=== PATIENT | female | born 1965 | race Caucasian/White ===

== ENCOUNTER 2017-11-09 14:33 | Emergency (ER) | payer OTHER ==
[~2017-11-09] VITALS: Ht 154.9 cm; Wt 61.7 kg
[2017-11-09] MEDS ORDERED: PROAIR HFA8.5 GM INH (15:44)
[2017-11-09] MEDS ORDERED: TESSALON PERLE100 MG PO (15:44)
[2017-11-09] MEDS ORDERED: GUAIFENESIN-CODE5 ML PO (15:44)
[2017-11-09] MEDS ORDERED: OSELB75 PO (15:54)
[2017-11-09 15:59] VITALS: BP 121/70
[2018-07-10] MEDS ORDERED: ESTRADIOL 1 MG T1 M1 PO (13:00)
[2018-07-10] MEDS ORDERED: PROGESTERONE100 MG PO (13:01)
== END 2017-11-09 16:01 | disposition home or self-care (01) ==
LOC: ER 14:33
DX: J06.9 Acute upper respiratory infection, unspecified (principal); R50.9 Fever, unspecified

== ENCOUNTER → 2018-07-11 | Outpatient (CLI) | payer OTHER ==
[~2018-07-11] VITALS: Ht 154.9 cm; Wt 63.5 kg
[~2018-07-11] MED LIST: ESTRADIOL 1 MG T1 M1 PO; GUAIFENESIN-CODE5 ML PO; OSELB75 PO; PROAIR HFA8.5 GM INH; PROGESTERONE100 MG PO; TESSALON PERLE100 MG PO
--- NOTE | ~2018-07-11 | PATH ---
[facility] [address] [address] PATHOLOGY RPT PROCEDURE Name: FLORENCIO JENKINS Room #: REG LORRAINE Winters.#: [id number] Admission: 07/11/18 Date of : 69 Discharge: Report #: [id number] Path Case #: [id number] [facility] Accession Number: [id number] . 01 Material submitted: . ASCENDING COLON POLYP BX X3 . 01 Clinical history: . Pre-op diagnosis: Screening Post-op diagnosis: Colon polyps, internal hemorrhoids . 02 Diagnosis: Colonic mucosa, "ascending colon polyp biopsy x3": - Fragments of tubular adenoma. - There is no evidence of high grade dysplasia or malignancy. . (SHA:mml; 07/13/18) QL/07/13/2018 . 02 Electronically signed: . Hermilo Jones MD, Pathologist NPI- [id number] . 01 Gross description: . The specimen is received in formalin, labeled "Florencio Jenkins, ascending colon polyp biopsy x3". Received are five segments of pale mack soft tissue ranging in size from 0.2 to 0.5 cm in maximum dimensions. The specimen is submitted entirely in cassette A1. (CAA; 07/12/2018) QAC/QAC . 02 Pathologist provided ICD-10: D12.2 . 02 CPT . 766992 Specimen Comment: A courtesy copy of this report has been sent to Specimen Comment: [phone], . Specimen Comment: Report sent to / DR AYALA Performed at: [address], [place], [place] [id number] MD Anoop Monte MD Phone: [phone] Performed at: [address] [id number] MD Lisbeth Barraza MD Phone: [phone]
== END | disposition home or self-care (01) ==
LOC: GI 08:50
DX: Z12.11 Encounter for screening for malignant neoplasm of colon (principal); D12.2 Benign neoplasm of ascending colon; K64.8 Other hemorrhoids; Z98.890 Other specified postprocedural states; Z79.899 Other long term (current) drug therapy
CPT/HCPCS: 62110; 62900

== ENCOUNTER → 2018-07-13 | Outpatient (CLI) | payer OTHER | LOC: RAD 13:56 | DX: Z12.31 Encounter for screening mammogram for malignant neoplasm of breast (principal) ==

== ENCOUNTER → 2020-06-20 | Outpatient (CLI) | payer OTHER ==
[2020-06-20 08:30] LABS: ABSOLUTE NEUTROPHILS 1.7 thou/uL (1.4-8.2); BASOPHILS 0.9 % (0.0-2.0); EOSINOPHILS 4.2 % (0.0-3.0); HEMATOCRIT 41.4 % (37.0-47.0); HEMOGLOBIN 13.6 gm/dL (12.0-15.0); LYMPHOCYTES 35.9 % (24.0-44.0); MCH 31.6 pg (26.0-34.0); MCHC 32.8 g/dL (28.0-37.0); MCV 96.1 fL (80.0-100.0); MONOCYTES 10.2 % (1.0-8.0); PLATELET COUNT 255 thou/uL (150-400); POLYS 48.8 % (36.0-66.0); RBC 4.31 mil/uL (4.20-5.00); RDW 12.7 % (10.5-14.5); WBC 3.4 thou/uL (4.0-11.0)
[2020-06-20 08:58] LABS: ALBUMIN 4.1 g/dL (3.4-5.0); ANION GAP 8 mmol/L (7-16); BUN 15 mg/dL (7-18); CALCIUM 8.8 mg/dL (8.5-10.1); CHLORIDE 105 mmol/L (98-107); CHOLESTEROL 271 mg/dL (<200); CO2 29 mmol/L (21-32); CREATININE 0.8 mg/dL (0.6-1.0); GLUCOSE 100 mg/dL (74-106); HDL CHOLESTEROL 105 mg/dL (>40); LDL CHOLESTEROL 155 mg/dL (<100); POTASSIUM 4.5 mmol/L (3.5-5.1); SGOT 21 U/L (15-37); SGPT 20 U/L (30-65); SODIUM 142 mmol/L (136-145); TC:HDL 2.6 Ratio (Not establshd); TOTAL BILIRUBIN 0.6 mg/dL (0.2-1.0); TOTAL PROTEIN 7.1 g/dL (6.4-8.2); TRIGLYCERIDE 59 mg/dL (<150); VLDL 12 mg/dL (<40)
[2020-06-20 23:06] LABS: GLYCOHEMOGLOBIN (HGB A1C) 5.2 % (4.8-5.6)
== END ==
LOC: LAB 07:51
PROVIDERS: ATTEND Nurse Practitioner
DX: Z00.00 Encounter for general adult medical examination without abnormal findings (principal)

== ENCOUNTER → 2020-07-01 | Outpatient (CLI) | payer OTHER | LOC: MRI 08:56 | PROVIDERS: ATTEND Nurse Practitioner | DX: R51.9 Headache, unspecified (principal); H53.8 Other visual disturbances ==

== ENCOUNTER → 2020-08-12 | Outpatient (CLI) | payer OTHER | LOC: RAD 10:39 | PROVIDERS: ATTEND Obstetrics & Gynecology | DX: Z12.31 Encounter for screening mammogram for malignant neoplasm of breast (principal) ==

== ENCOUNTER → 2020-09-05 | Outpatient (CLI) | payer OTHER | LOC: LAB 09:14 | PROVIDERS: ATTEND Nurse Practitioner | DX: J02.9 Acute pharyngitis, unspecified (principal); Z20.828 Contact with and (suspected) exposure to other viral communicable diseases ==